=== PATIENT | male | born 1960 | race Caucasian/White ===

== ENCOUNTER 2018-05-04 11:23 | Inpatient (IN) ==
--- NOTE | 2018-05-04 11:51 | History & Physical Report ---
Date of Encounter: 05/04/18 Time of Encounter: 11:50 24 Hour HP Update - Instructions Instructions: If the History and Physical is less than 30 days old and was completed prior to A.M. admission and or procedure and has NOT been updated on calendar day of procedure please complete this update prior to performing procedure. - Update Patient reports changes in Medical Condition: No Changes in examination, assessment, or condition: No Changes in Medication: No Preop tests/diagnostics Reviewed: Yes Surgery Remains Indicated: Yes Consent for Planned Operative Procedure(s) Verified: Yes - Pre-Operative Checklist Preoperative Checklist Indicated: No Prophylactic Antibiotic Ordered: Yes Is VTE Prophylaxis Indicated?: Yes
[2018-05-04] MEDS ORDERED: Famotidine 20 MG/2 ML VIAL IVP ONE (11:59)
[2018-05-04] MEDS ORDERED: Acetaminophen IV 1,000 MG/100 ML INFUS..BTL IVPB ONE (11:59)
[2018-05-04] MEDS ORDERED: Ringers Solution, Lactated 1,000 ML IVC SCH ×2 (12:00→16:55)
[2018-05-04] MEDS ORDERED: CeFAZolin Syr 3,000MG/30 ML 3,000 MG/30 ML SYRINGE IVPB ONE (12:05)
[2018-05-04] MEDS ORDERED: Dexamethasone 4 MG/ML VIAL ONE (12:10)
[2018-05-04] MEDS ORDERED: *HR* Midazolam HCl 2 MG/2 ML VIAL ONE (12:10)
[2018-05-04] MEDS ORDERED: *HR* Rocuronium Bromide 50 MG/5 ML VIAL ONE (12:10)
[2018-05-04] MEDS ORDERED: Lidocaine -MPF 2% 2 ML VIAL ONE (12:10)
[2018-05-04] MEDS ORDERED: *HR* Succinylcholine 200 MG/10 ML VIAL IVP ONE (12:10)
[2018-05-04] MEDS ORDERED: Ondansetron 4 MG/2 ML VIAL ONE (12:10)
[2018-05-04] MEDS ORDERED: *HR* FentaNYL (PF) 100 MCG/2 ML VIAL ONE ×2 (12:10→13:00)
[2018-05-04] MEDS ORDERED: *HR* Propofol 200 MG/20 ML VIAL IVP ONE (12:11)
--- NOTE | 2018-05-04 12:16 | Anesthesia Evaluation PreOp ---
Date of Encounter: 05/04/18 Time of Encounter: 12:15 - Past History Planned Operation: Rt Total Shoulder Revision Cardiac History: [place], HTN, Hyperlipidemia, Cardiac Stent (2009) Pulmonary History: Former smoker PIT OPERATOR History: Denies Any Significant HX Other Medical History: Diabetes Type II, Other ([place]) Anesthesia History: No Prior Anesthetic Complications Alcohol Use: none Drug use: none Medications and Allergies Allergy/AdvReac Type Severity Reaction Status Date / Time Sulfa (Sulfonamide Allergy See Verified 05/04/18 12:15 Antibiotics) Comments - Meds/Allergy Pre-op Review Medications Reviewed: Yes Allergies Reviewed: Yes Beta Blockers on Current Med List: Yes (Atenolol today 0800) Anesthesia Results - Labs Laboratory Tests 04/28/18 04/28/18 14:58 14:58 Hgb 16.8 Hct 51.1 H Plt Count 280 Sodium 137 Potassium 4.6 BUN 45 H Creatinine 1.35 H - Imaging EKG: report reviewed (SR) Anesthesia Exam O2 Sat Height 1.65 m Weight 129.274 kg O2 Sat by Pulse Oximetry 94 Vital Signs Temp Pulse Resp BP Pulse Ox 98.3 F 90 18 143/92 94 05/04/18 11:43 05/04/18 11:43 05/04/18 11:43 05/04/18 11:43 05/04/18 11:43 Height: 5'5 Weight: 285 lbs NPO (# of Hours): MN Pain Scale: 0 - HEENT Pupil (Motor): Pupils equal, EOMI Mallampati: III Teeth: Normal Oral Opening: Less than or equal to 3 - PIT OPERATOR LOC: Oriented PIT OPERATOR Motor: Normal RUE, Normal LUE, Normal RLE, Normal LLE, Normal Face PIT OPERATOR Sensory: Normal: RUE, LUE, RLE, LLE, Face - Cardiac Rhythm: Regular Murmur: None JVD: No Carotid Bruit: No - Pulmonary Breath Sounds: bilateral Clear Respiratory Effort: Symmetrical Anesthesia Assess/Plan ASA Score: 3 (HTN CAD [place] DM) Level of consciousness: Cooperative Anesthetic Plan: General, Regional Nerve Block Regional Nerve Block Plan: Supraclavicular Autologous Blood: No Monitoring Plan: Standard Monitors Recovery Plan: PACU (Discussed GA, RA, agrees to proceed)
[2018-05-04] MEDS ORDERED: Ethanol\\Acetic Acid\\Na Ace\\Ben 1,000 ML IRRIG.SOLN IR ONE (12:26)
[2018-05-04] MEDS ORDERED: Bupivacaine/Clonidine Syringe 1 EACH SYRINGE ONE (12:29)
[2018-05-04] MEDS ORDERED: ROPIVACAINE HCL/PF 0.5% 30 ML VIAL ONE (12:29)
[2018-05-04] MEDS ORDERED: Tetracaine/PF 20 MG/2 ML AMPUL ONE (12:29)
[2018-05-04] MEDS ORDERED: *HR* PHENYLEPHRINE 1,000 MCG/10 ML SYRINGE IVP ONE ×4 (13:09→14:56)
[2018-05-04] MEDS ORDERED: EPHEDrine 50 MG/ML VIAL ONE (13:20)
--- NOTE | 2018-05-04 14:44 | Orthopedic Operative Note ---
Date of procedure: 05/04/18 Pre-op diagnosis: Aseptic loosening left total shoulder glenoid Post-op diagnosis: same Procedure: Procedure: Right Revision Total Shoulder replacement reverse Estimated blood loss: 200 cc Hardware: Arthrex: Metal and plastic: 24, +4, 35 mm screw, baseplate 42+4 sphere 3 5.5 locking screws 8 standard stem 6 metal spacer 3 constrained Meenu spacer 3 Arthrex cerclage fiber tapes Procedural Notes:Glenoid completely loose, humeral stem well fixed required splitting controlled osteotomy of the humerus to remove the stem. Operative procedure: The patient was brought to the operating room and placed on the operating room table. The patient was placed in the modified beachchair position. All pressure points were padded appropriately. And the head was stabilized in the neutral position. The operative extremity was prepped and draped in the sterile surgical fashion. The patient received IV antibiotics prior to skin incision. A standard deltopectoral approach was made to the operative shoulder. Incision was made to the skin and subcutaneous tissue,hemo stasis was obtained with Bovie cautery. Using careful blunt dissection the cephalic vein was identified and mobilized medially. The deltopectoral interval was developed and the c lavipectoral fascia was incised. An extensive debridement was performed, and the shoulder was dislocated. the humeral head was removed, the trunnion was removed, osteotomes were used to mobilize soft tissue and bony contact around the proximal portion the stem. An attempt removed with the slap hammer was unsuccessful. Decision was made to do a controlled osteotomy to remove the stem. She was done along the anterolateral aspect the humerus with an oscillating saw. The stem was removed. Unfortunately the patient's humerus was to big for a revision size 6 stem and too small for a revision size 9 stem. It was broached to an 8 standard stem and had good rotational stability. The humeral stem was placed in 20 degrees of retroversion. 3 Arthrex cerclage fiber tapes were passed subperiosteally around the osteotomy and secured with the stem in place. The glenoid guide was seated the centering hole was made the glenoid was reamed with the appropriate reamer. The glenoid baseplate was seated and secured and locked in place with the locking screws The baseplate was a 24, +4, with a 35 mm screw. The baseplate was irrigated and dried 42+4 glenosphere was seated and secured. Attention was then turned to the humeral side. Trial reduction found the shoulder to be relocatable. Trial components were removed, real implants were seated. Trial reduction found the shoulder to be stable with the appropriate 6 metal 3 constrained Meenu implants. The trial implants were removed the real implants were seated and secured in the shoulder was reduced. The patient had excellent motion and excellent stability no shuck. The deep tissue was irrigated with pulse irrigation the PA close the shoulder, deltopectoral interval was closed with #2 PDS suture Superficially the subcut aneous tissue was closed with 0 PDS suture, the skin was closed with Dermabond. The patient placed sterile dressing, postoperative brace extubated and transferred to the recovery room in stable condition. Anesthesia: GETA Surgeon: Topher Nina Was there an certified surgical tech/first assistant present: No Estimated blood loss (cc): 200 Condition: stable Disposition: PACU
[2018-05-04] MEDS ORDERED: *HR* OxyCODONE Immed Rel 5 MG TABLET PO PRN ×2 (15:15→16:55)
[2018-05-04] MEDS ORDERED: *HR* Promethazine 25 MG/ML VIAL IVP PRN (15:15)
[2018-05-04] MEDS ORDERED: *HR* HYDROmorphone (PF) 1 MG/ML SYRINGE IVP PRN (15:15)
--- NOTE | 2018-05-04 15:32 | Anesthesia Procedures ---
Date of Encounter: 05/04/18 Time of Encounter: 12:15 Procedures: Anesthesia - Nerve Block Procedure Date: 05/04/18 Time: 14:50 Pre-op Diagnosis: Aseptic Loosening Shoulder Implant Surgical Procedure: Rt Revision TSR Checklist: Correct Patient Identifier Correct side: Right Blood Thinner: No Monitor Applied: EKG, BP, Pulse Oximetry Supplemental Oxygen via Nasal Cannula (L/min): 2 Indication: Post Op Analgesia Pre-op Neuro Deficits: No Block Type: Supraclavicular Catheter placed: No Depth at skin (cm): 3 Sterile Technique: Yes Ultrasound used: Yes Anatomy identified: Yes Visual spread of Local: Yes Neuro Stimulation: No Blood on Needle Aspiration: No Smooth Injection of Local: Yes Pain with Injection of Local: No Prep: Chlorhexadine Needle: 22 x 50 mm Stimuplex Local: Ropivacaine, Other (Lidocaine) Volume (cc): 30 Number of Attempts: 1 Complications: None/effective block Vitals: Vital Signs/O2 Sat/Glucose, Most Current Temp Pulse Resp BP Pulse Ox 05/04/18 11:43 98.3 F 90 18 143/92 94
--- NOTE | 2018-05-04 16:05 | Discharge Summary ---
Addendum entered and electronically signed by ASIM Morillo 05/05/18 17:29: Preliminary cultures negative. Original Note: - NOTES TO OUTPATIENT PROVIDER Notes to Outpatient Provider: Patient noted to have elevated blood sugars while inpatient and placed on sliding scale during stay. Patient with A1c 6.8 on preoperative labwork. Please address with patient. Thank you. 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 transplanted heart: unspecified whether [place] or transplanted heart Associated angina: angina presence unspecified Qualified Code(s): I25.10 - Atherosclerotic heart disease of [place] coronary artery without angina pectoris (4) Stented coronary artery Priority: Secondary Status: Chronic (5) HTN (hypertension) Priority: Secondary Status: Chronic Qualifiers: Hypertension type: unspecified Qualified Code(s): I10 - Essential (primary) hypertension (6) SEA (obstructive sleep apnea) Priority: Secondary Status: Chronic (7) Gout Priority: Secondary Status: Chronic Qualifiers: Gout site: unspecified site Gout etiology: unspecified cause Chronicity: unspecified Qualified Code(s): M10.9 - Gout, unspecified (8) Diabetes mellitus Priority: Secondary Status: Chronic Qualifiers: Diabetes mellitus type: type 2 Diabetes mellitus adjunct faculty for medical terminology insulin use: unspecified adjunct faculty for medical terminology insulin use status Diabetes mellitus complication status: with unspecified complications Qualified Code(s): E11.8 - Type 2 diabetes mellitus with unspecified complications (9) Obesity Priority: Secondary Status: Chronic Qualifiers: Obesity type: unspecified obesity type Obesity classification: adult class 3 (BMI >= 40) Serious obesity comorbidity presence: unspecified whether serious comorbidity present Body mass index: BMI 45.0-49.9 Qualified Code(s): E66.01 - Morbid (severe) obesity due to excess calories; Z68.42 - Body mass index (BMI) 45.0-49.9, adult (10) Blood glucose elevated Priority: Primary Status: Acute - Hospital Course Hospital course: Mr. Ross is a 58 year old male POD#1 Right Revision Total Shoulder replacement reverse performed 05/04/[address] Nina for Aseptic loosening right total shoulder glenoid. Hospital course complicated by postoperative hypotension and hypoxia - resolved by time of discharge. Patient to remain NO shoulder motion and continue in brace while active and sleeping. Patient is to be non-weightbearing to the Right upper extremity. Elbow and wrist range of motion activity permitted. Error detected upon patient discharge of incorrect ordering of home medications. Patient noted after discharge to have elevated vitals prior to discharge not communicated to provider. Patient being contacted for wellness check vs ED evaluation immediately upon noting of the medication error. Dr. Nina made aware. Home health going to see patient today for wellness and vitals check. - Time Spent with Patient Total time spent providing and/or coordinating discharge services: - Discharge Medications Prescriptions: Docusate [Colace] 100 mg PO BID 5 Days #10 capsule Home Medications: Allopurinol [Zyloprim 300 MG] 300 mg PO DAILY 05/04/18 [History] Aspirin [Lo-Dose Aspirin EC] 81 mg PO DAILY 05/04/18 [History] Atenolol [Tenormin] 25 mg PO BID 05/04/18 [History] Bupropion HCl [Wellbutrin Xl] 300 mg PO DAILY 05/04/18 [History] Diltiazem HCl [Diltiazem 24Hr Cd] 180 mg PO DAILY 05/04/18 [History] Doxepin HCl 75 mg PO HS 05/04/18 [History] Ezetimibe 10 mg PO DAILY 05/04/18 [History] FLUoxetine HCl [Prozac] 40 mg PO DAILY 05/04/18 [History] Losartan Potassium 100 mg PO DAILY 05/04/18 [History] Lovastatin 10 mg PO DAILY 05/04/18 [History] Multivitamin [One-Daily Multi-Vitamin] 1 tab PO DAILY 05/04/18 [History] OxyCODONE Immed Rel [Roxicodone 5 MG] 5 mg PO Q6HR PRN 7 Days #28 tablet 05/04/18 [Rx] Polyethylene Glycol 3350 [MiraLAX] 17 gm PO DAILY 05/04/18 [History] Ropinirole HCl [Requip] 2 mg PO HS 05/04/18 [History] Torsemide 100 mg PO DAILY PRN 05/04/18 [History] cloNIDine HCl [CloNIDine HCl] 0.1 mg PO BID 05/04/18 [History] hydrOXYzine HCl [Hydroxyzine HCl] 25 mg PO TID 05/04/18 [History] Docusate [Colace] 100 mg PO BID 5 Days #10 capsule 05/05/18 [Rx] Allergies/Adverse Reactions: Allergy/AdvReac Type Severity Reaction Status Date / Time Sulfa (Sulfonamide Allergy See Verified 05/04/18 12:15 Antibiotics) Comments Date of admission: 05/04/18 Primary care physician: Deonte Garcia Discharging clinician: Topher Nina Labs on day of discharge: Labs from last 24 hours 05/04/18 11:41 POC Glucose 135 H - Patient Status Disposition: Home Health Service Condition: Fair Functional capacity at discharge: independent ambulation Overall status at discharge: patient is progressing back to baseline - Discharge Instructions Follow Up With: Deonte Garcia MD [Primary Care Provider] - Additional Instructions: Discharge Instructions: Total Shoulder Please call [facility] ([phone]), your Primary Care Physician, or report to the Emergency Room if you have any of the following symptoms: Nausea, vomiting, fever greater that 101.5, swelling, chest pain, shortness of breath, increased pain/redness/drainage/odor for your incision site, numbness/tingling, or any other concerning symptoms. ACTIVITY: Always keep your arm in the sling. Do not raise your arm away from your body. Do not use your arm to help with getting in or out of bed. No weight bearing permitted. Only perform those exercises given to you by your therapist. Incentive Spirometer 10 times an hour. No shoulder motion. MEDICATIONS: Upon discharge resume your home medications. Take all the medications as prescribed. Take a stool softener if taking narcotic pain medications. Stool softeners are only effective if you drink enough fluids. Drink 6-8 glass of water or fluids a day, unless this is not allowed for another health problem. Despite using stool softeners, if you haven't had a bowel movement in 3 days, please switch to a gentle laxative. Gentle laxatives are sold over the counter. You should have a bowel movement within 24 hours, if not call the office. You will be discharged from the hospital with a prescription for pain medication. You are encouraged to decrease the use of narcotic pain medication as tolerated. Should you require a refill, please call the office. [facility] prescribes narcotic pain medication for only 4-6 weeks after surgery. If you require pain medication beyond this time period, you may be referred to your Primary Care Physician or to the Pain Clinic for further evaluation. Plan ahead for refills on pain medication as many narcotics either need to be picked up at the office or mailed. It is best to call 48-72 hours in advance of needing a prescription refill so you don't run out of medication. To help control the post-operative pain, you may take NSAIDs (Aleve,Advil, Mot rin, Ibuprofen, Naprosyn) or Tylenol as prescribed on the bottle in addition to the pain medication. WOUND CARE: Leave the dressing on for 7-10 days. You may change the dressing if it becomes saturated greater than 50%. Do not get the dressing wet at anytime. Wash your hands with antibacterial soap, rinse and dry prior to any wound care. If you have jarrett the visiting nurse or rehab facility can remove the stapes 10-14 days after surgery and place steri-strips across the wound. Leave the steri-strips in place until they fall off on their own. You may let water from the shower run on top of the steri-strips. If you do not have a visiting nurse or rehab facility, you will need to return to the office at 10-14 days for the jarrett to be removed. If you have itching or redness around the dressing call the office. FOLLOW-UP: Please follow up with your surgeon in the orthopedic clinic, as scheduled - Diet and Activity Activity: as per physical therapy Diet: advance to your usual diet
--- NOTE | 2018-05-04 16:26 | Anesthesia Evaluation Post Op ---
Date of Encounter: 05/04/18 Time of Encounter: 16:25 - Vital Signs Vital Signs: Vital Signs/O2 Sat/Glucose, Most Current Temp Pulse Resp BP Pulse Ox 05/04/18 16:14 98.2 F 72 18 92/55 92 05/04/18 16:04 74 20 89/55 92 05/04/18 15:54 73 18 91/52 89 05/04/18 15:51 13 92 05/04/18 15:44 98.0 F 73 18 89/48 88 05/04/18 15:34 76 22 85/53 87 05/04/18 15:24 78 22 85/51 88 05/04/18 15:14 78 22 82/45 90 05/04/18 15:04 97.6 F 81 24 95/75 95 - Lungs Lungs: Clear Ascult./Percussion - Airway Airway: Non-obstructed (on BiPap) - Cardiovascular Regular Rate - Mental Status Mental Status: Alert & Oriented, Answers Appropriately - Pain Pain Scale: 0 - Nausea Vomiting Nausea Vomiting: Not Present - Hydration Hydration: NPO - Discharge PostOp Status: Transfer Patient to floor (Good Tidal Volume, keep on BiPap)
[2018-05-04] MEDS ORDERED: Sennosides 8.6 MG TABLET PO PRN (16:55)
[2018-05-04] MEDS ORDERED: traMADol 50 MG TABLET PO PRN (16:55)
[2018-05-04] MEDS ORDERED: Ondansetron 4 MG/2 ML VIAL IVP PRN (16:55)
[2018-05-04] MEDS ORDERED: Naloxone 0.4 MG/ML INJ IVP PRN (16:55)
[2018-05-04] MEDS ORDERED: MOM Conc 10 ML UD.LIQ PO PRN (16:55)
[2018-05-04] MEDS ORDERED: Temazepam 15 MG CAPSULE PO PRN (16:55)
[2018-05-04 17:05] LABS: Hematocrit 43.6 % (37.5-50.1)
[2018-05-04 17:06] LABS: Hemoglobin 14.3 g/dL (12.9-16.9)
[2018-05-04] MEDS ORDERED: *HR* Enoxaparin 30 MG/0.3 ML SYRINGE SQ SCH (18:00)
[2018-05-04] MEDS ORDERED: Acetaminophen IV 1,000 MG/100 ML INFUS..BTL IVPB SCH (18:30)
[2018-05-04] MEDS: *HR* Enoxaparin 30 MG/0.3 ML SYRINGE SQ SCH (18:51)
[2018-05-04] MEDS ORDERED: *HR* Dextrose 50 % in Water (Syg) 50 ML SYRINGE IVP PRN (20:50)
[2018-05-04] MEDS ORDERED: Dextrose Gel 15 GM/37.5 ML TUBE PO PRN ×2 (20:50)
[2018-05-04] MEDS ORDERED: D5% in Water 1,000 ML IVC PRN (20:50)
[2018-05-04] MEDS ORDERED: Insulin LISPRO 300 UNITS/3 ML VIAL SQ SCH (21:00)
[2018-05-04] MEDS: ceFAZolin 3,000 MG in 0.9 % Sodium Chloride 100 ML IVPB SCH (21:31)
[2018-05-04] MEDS: *HR* OxyCODONE/APAP 5/325 TABLET PO PRN (22:28)
[2018-05-05] MEDS: ceFAZolin 3,000 MG in 0.9 % Sodium Chloride 100 ML IVPB SCH (03:07)
[2018-05-05] MEDS ORDERED: Acetaminophen IV 1,000 MG/100 ML INFUS..BTL IVPB SCH (04:00)
[2018-05-05] MEDS: *HR* Enoxaparin 30 MG/0.3 ML SYRINGE SQ SCH (05:51)
[2018-05-05 06:32] LABS: Hematocrit 40.8 % (37.5-50.1); Hemoglobin 13.1 g/dL (12.9-16.9)
--- NOTE | 2018-05-05 06:44 | Orthopedics Progress Note ---
Date of Encounter: 05/05/18 Time of Encounter: 06:44 Subjective Interval history: Patient was seen this morning doing well without complaints. Afebrile vital signs stable. Operative extremity: Neurovascularly intact Dressing clean dry and intact Calves nontender Assessment and plan: Continue with postoperative care Hematocrit 40 discharged today Objective Vital signs: Vital Signs Temp Pulse Resp BP Pulse Ox 05/05/18 04:59 98.7 F 104 18 130/82 93 05/04/18 23:26 98.3 F 106 18 124/81 92 05/04/18 20:15 92 05/04/18 20:00 98.2 F 99 20 130/80 92 05/04/18 19:11 97.9 F 91 18 107/75 94 05/04/18 19:00 97.6 F 74 18 101/68 93 05/04/18 17:26 98.1 F 76 16 116/74 90 05/04/18 16:49 99.1 F 70 14 100/65 95 05/04/18 16:35 90 05/04/18 16:34 98.1 F 78 20 97/61 92 05/04/18 16:24 73 20 96/59 93 05/04/18 16:14 98.2 F 72 18 92/55 92 05/04/18 16:04 74 20 89/55 92 05/04/18 15:54 73 18 91/52 89 05/04/18 15:51 13 92 05/04/18 15:44 98.0 F 73 18 89/48 88 05/04/18 15:34 76 22 85/53 87 05/04/18 15:24 78 22 85/51 88 05/04/18 15:14 78 22 82/45 90 05/04/18 15:04 97.6 F 81 24 95/75 95 05/04/18 11:43 98.3 F 90 18 143/92 94 Intake and Output 05/04/18 05/04/18 05/05/18 15:59 23:59 07:59 Intake Total 1120 / 1120 640 / 640 Output Total 200 / 200 Balance -200 / -200 1120 / 1120 640 / 640 Intake: IV Fluids 330 / 330 200 / 200 Ofirmev 1,000 mg/100 ml 1,000 200 / 200 100 / 100 mg In 100 ml @ 400 mls/hr IVPB Q8H [facility] Rx#:[id number] Ancef Syringe 3,000 MG/30 ML 3, 30 / 30 000 mg In 30 ml @ 200 mls/hr IVPB PREOP ONE Rx#:[id number] Ancef 3,000 MG In 0.9 % Sodium 100 / 100 100 / 100 Chloride 100 ML @ 200 mls/hr IVPB Q8H [facility] Rx#:[id number] Oral 790 / 790 440 / 440 Output: Estimated Blood Loss 200 / 200 Other: # Voids 1 1 Weight 129.274 kg Blood Glucose* 134 235 - Labs CBC & BMP: 05/05/18 05:57 Labs: Abnormal lab results POC Glucose 151 mg/dL (70-99) H 05/04/18 17:14 - VTE Documentation of Mechanical Device: Venous foot pump, device Consult Discharge Plan - Plan Referrals: Deonte Garcia MD [Primary Care Provider] -
[2018-05-05 07:02] LABS: Potassium 4.8 mEq/L (3.5-5.1)
--- NOTE | 2018-05-05 08:49 | Physician Discharge Referral ---
Home Health/Hosp Referral Info Transfer to: Home Health Attending Provider: Dr. 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 For more information, call the [place] Tobacco Quit Line at 0-345-DCDB-NOW. - Dressing/Wound Care Site: right shoulder Type of Dressing/Treatments w/Frequency: Opsite placed. Keep dressing intact until first follow up appointment. If greater than 50% saturated, notify office, remove dressing and place appropriate dressing back in place. Leave Steve and Zipline intact. Opsite dressing is water resistant, not water-proof. OK to shower, but do not get dressing wet. - Diet/Nutrition Diet/Nutrition Orders: Regular - Activity Activity Orders: Up ad baldemar, Ambulate Activity: List: NO SHOULDER MOTION REMAIN IN BRACE WITH PILLOW FOR 6 WEEKS PT/OT for elbow and wrist/hand range of motion ONLY. Remove brace during exercises - no shoulder motion. NO WEIGHT BEARING to affected upper extremity. Follow Shoulder Precautions x 6 weeks. ICE extremity frequently throughout the day. - Services Needed Following services are medically necessary services: Nursing, Home Health Aide, Physical Therapy, Occupational Therapy Home Care Orders: REPEAT BMP 48 hours from date of discharge. Please notify [facility] of draw and results. - Transfer Medications Prescriptions: Docusate [Colace] 100 mg PO BID 5 Days #10 capsule Home Medications: Allopurinol [Zyloprim 300 MG] 300 mg PO DAILY 05/04/18 [History] Aspirin [Lo-Dose Aspirin EC] 81 mg PO DAILY 05/04/18 [History] Atenolol [Tenormin] 25 mg PO BID 05/04/18 [History] Bupropion HCl [Wellbutrin Xl] 300 mg PO DAILY 05/04/18 [History] Diltiazem HCl [Diltiazem 24Hr Cd] 180 mg PO DAILY 05/04/18 [History] Doxepin HCl 75 mg PO HS 05/04/18 [History] Ezetimibe 10 mg PO DAILY 05/04/18 [History] FLUoxetine HCl [Prozac] 40 mg PO DAILY 05/04/18 [History] Losartan Potassium 100 mg PO DAILY 05/04/18 [History] Lovastatin 10 mg PO DAILY 05/04/18 [History] Multivitamin [One-Daily Multi-Vitamin] 1 tab PO DAILY 05/04/18 [History] OxyCODONE Immed Rel [Roxicodone 5 MG] 5 mg PO Q6HR PRN 7 Days #28 tablet 05/04/18 [Rx] Polyethylene Glycol 3350 [MiraLAX] 17 gm PO DAILY 05/04/18 [History] Ropinirole HCl [Requip] 2 mg PO HS 05/04/18 [History] Torsemide 100 mg PO DAILY PRN 05/04/18 [History] cloNIDine HCl [CloNIDine HCl] 0.1 mg PO BID 05/04/18 [History] hydrOXYzine HCl [Hydroxyzine HCl] 25 mg PO TID 05/04/18 [History] Docusate [Colace] 100 mg PO BID 5 Days #10 capsule 05/05/18 [Rx] Allergies/Adverse Reactions: Allergy/AdvReac Type Severity Reaction Status Date / Time Sulfa (Sulfonamide Allergy See Verified 05/04/18 12:15 Antibiotics) Comments Certification: Further, I certify that my clinical findings support that this patient is homebound (i.e. absences from home require considerable and taxing effort and are for medical reasons or islam services or infrequently or short duration when for other reasons) because: Homebound Reason: Post-surgery restriction and or conditions limit ability to leave home Attestation: My signature below is to certify that this patient is under my care and that I, or nurse practitioner, or a physician assistant public defender working with me, has a [id number] encounter with this patient.
[2018-05-05] MEDS: Insulin LISPRO 300 UNITS/3 ML VIAL SQ SCH ×2 (08:56→11:32)
[2018-05-05] MEDS: *HR* OxyCODONE/APAP 5/325 TABLET PO PRN (09:19)
[2018-05-05 11:29] VITALS: BP 170/110
== END 2018-05-05 12:50 | disposition home health service (06) | DRG 483 ==
LOC: SAMDAY 11:23 → 3NENU 16:38
PROVIDERS: ADMIT Orthopaedic Surgery; ATTEND Orthopaedic Surgery